=== PATIENT | female | born 1955 | race Caucasian/White ===

== ENCOUNTER 2017-06-11 10:43 | Inpatient (IN) | payer OTHER ==
[~2017-06-11] VITALS: Ht 165.1 cm; Wt 93.4 kg
[2017-06-11 11:57] LABS: EOSINOPHIL (%) 2.7 % (0-5); EOSINOPHIL COUNT 0.2 K/uL (0-0.3); HEMATOCRIT 38.9 % (36.0-46.0); IMMATURE GRANULOCYTE (%) 0.3 % (0.0-0.7); INSTRUMENT ABS NEUTROPHIL CT 3.4 K/uL; LYMPHOCYTE COUNT 2.6 K/uL (1.0-2.8); MCHC 33.2 G/DL (30.0-36.0); MCV 96.5 FL (83-99); MEAN PLAT.VOLUME 9.6 uM^3 (9.5-12.4); MONOCYTE (%) 6.4 % (3-12); MONOCYTE COUNT 0.4 K/uL (0-0.8); NEUTROPHIL (%) 51.2 % (45-76); NEUTROPHIL COUNT 3.4 K/uL (1.8-6.4); PLATELET COUNT 325 K/uL (156-360); RBC DIS.WIDTH-CV 12.8 % (11.8-14.6); RBC DIS.WIDTH-SD 45.5 % (39-53); RED BLOOD COUNT 4.03 M/uL (3.80-5.20); WHITE BLOOD COUNT 6.7 K/uL (4.1-10.2)
[2017-06-11 12:03] LABS: PROTHROMBIN TIME 10.9 SEC (10.2-12.9)
[2017-06-11 12:20] LABS: CHLORIDE 104 mEq/L (99-109); POTASSIUM 3.6 mEq/L (3.7-5.4); SODIUM 138 mEq/L (136-147)
[2017-06-11 12:22] LABS: GLUCOSE 112 mg/dL (70-99)
[2017-06-11 12:23] LABS: ANION GAP 11 MEQ/L (2-14)
[2017-06-11 12:26] LABS: GFR ESTIMATE (CALCULATED) > 59 mL/min/; UREA NITROGEN (BUN) 15 mg/dL (9-23)
[2017-06-11] MEDS ORDERED: LISINOPRIL-HCT1 EACH PO (15:46)
[2017-06-11] MEDS ORDERED: CITALOPRAM HBR40 MG PO (15:47)
[2017-06-11] MEDS ORDERED: OXYCODONE HCL5 MG PO (15:47)
[2017-06-11] MEDS ORDERED: CLONAZEPAM0.5 MG PO (15:47)
[2017-06-11] MEDS ORDERED: ACETAMINOPHEN1 EAC4 PO (15:48)
[2017-06-11 21:44] VITALS: BP 138/82
[2017-06-12 00:40] VITALS: BP 137/79
[2017-06-12 05:11] VITALS: BP 141/98
[2017-06-12 10:26] VITALS: BP 153/86
[2017-06-12 12:16] VITALS: BP 145/80
[2017-06-12 20:24] VITALS: BP 138/79
[2017-06-12 23:45] VITALS: BP 126/80
[2017-06-13 03:43] VITALS: BP 139/85
[2017-06-13 08:01] VITALS: BP 138/89
[2017-06-13 12:07] VITALS: BP 135/77
[2017-06-13 16:04] VITALS: BP 157/79
[2017-06-13] MEDS ORDERED: CYCLOBENZAPRINE10 MG PO (17:27)
[2017-06-13] MEDS ORDERED: TRAMADOL HCL50 MG PO (17:27)
== END 2017-06-13 18:53 | disposition home or self-care (01) | DRG 472 ==
LOC: EME 10:43 → ENRESERV 16:30 → 3EAST 16:48 → EME 16:48 → 2SOUTH 16:48 → ENRESERV 18:00 → 3EAST 21:18
PROVIDERS: Emergency Medicine
DX: S12.500A Unspecified displaced fracture of sixth cervical vertebra, initial encounter for closed fracture (principal); M50.021 Cervical disc disorder at C4-C5 level with myelopathy; S12.600A Unspecified displaced fracture of seventh cervical vertebra, initial encounter for closed fracture; W10.8XXA Fall (on) (from) other stairs and steps, initial encounter; M50.022 Cervical disc disorder at C5-C6 level with myelopathy; M50.023 Cervical disc disorder at C6-C7 level with myelopathy; M47.12 Other spondylosis with myelopathy, cervical region; F41.9 Anxiety disorder, unspecified; I10 Essential (primary) hypertension; F17.200 Nicotine dependence, unspecified, uncomplicated
CPT/HCPCS: 71010; 72040; 72125; 76000; 80048; 85025; 85610; 93005; 94799; 99202; 99281; 99285; C1713; C1821; J0330; J0690; J1100; J1170; J1580; J2060; J2175; J2250; J2405; J2710; J2765; J3010; J3480